=== PATIENT | female | born 1975 | race Caucasian/White ===

== ENCOUNTER → 2024-06-03 | Outpatient (CLI) | payer MEDICAID, SELFPAY ==
--- NOTE | 2024-06-03 12:20 | XR_ITS ---
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 Peak reference and age match control results have been displayed. Findings: Lumbar spine total bone mineralization is1.009 gm/cm2. This is 0.3 standard deviations below peak reference. This is 0.4 standard deviations above age-matched controls. Hip total bone mineralization is 0.980 gm/cm2 This is 0.3 standard deviations above peak reference. This is 0.8 standard deviations above age-matched controls Impression: There is normal mineralization based on lumbar spine measurements. There is normal mineralization based on hip measurements
== END | disposition home or self-care (01) ==
LOC: CDIM 10:24
PROVIDERS: Referring Provider Psychiatry & Neurology Neurology; Visit Provider Psychiatry & Neurology Neurology
DX: M81.0 Age-related osteoporosis without current pathological fracture (principal)
CPT/HCPCS: 77080

== ENCOUNTER → 2025-01-27 | Outpatient (CLI) | payer MEDICAID, SELFPAY ==
--- NOTE | 2025-01-27 13:15 | XR_ITS ---
Examination: Screening digital mammography, bilateral Computer aided detection 3-D breast Tomosynthesis, bilateral Date and time of exam: January 27, 2025 1308 hours Compared to mammograms dating to April 03, 2015 Indication: Screening Technique: Nonmagnified MLO, CC views of the breasts to been obtained, reconstructed from 3-D Tomosynthesis images. R2 computer aided detection program utilized for evaluation of suspicious masses and/or abnormal calcifications. 3-D Tomosynthesis images obtained. Findings: Scattered areas of fibroglandular density. Skin lesion upper left breast Benign calcifications. No interval suspicious masses Impression: BI-RADS category II: Benign Findings. Recommend 1 year follow-up mammogram.
== END | disposition home or self-care (01) ==
LOC: CDIM 12:56
PROVIDERS: Referring Provider Student in an Organized Health Care Education/Training Program; Visit Provider Student in an Organized Health Care Education/Training Program
DX: Z12.31 Encounter for screening mammogram for malignant neoplasm of breast (principal); R92.323 Mammographic fibroglandular density, bilateral breasts; R92.1 Mammographic calcification found on diagnostic imaging of breast
CPT/HCPCS: 77063; 77067

== ENCOUNTER 2025-03-07 10:19 | Emergency (ER) | payer MEDICAID, SELFPAY ==
[2025-03-07 10:38] VITALS: BMI 29.4
[2025-03-07 10:39] VITALS: BP 141/104; PULSE 106; RESP 18; TEMP 36.6; O2SAT 97
--- NOTE | 2025-03-07 10:47 | XR_ITS ---
Examination: Shoulder,left, 3 views Technique: Shoulder AP internal rotation, AP external rotation, Y view shoulder, 3 views Exam date and time :March 07, 2025 1040 hours INDICATIONS: Injury to the shoulder today, shoulder pain. FINDINGS: No shoulder fracture or dislocation No AC joint separation IMPRESSION: No shoulder fracture or dislocation
[2025-03-07] MEDS: KETOROLAC INJ 60 MG/2 ML VIAL 30 MG IM (11:10)
--- NOTE | 2025-03-07 11:24 | PD.EDUPEX ---
Upper Extremity Injury RME/HPI General Chief Complaint: Extremity Injury, Upper Stated Complaint: seizure on Monday, hurt left shoulder Time Seen by Provider: 03/07/25 10:23 Source: patient Arrival date/time: 03/07/25 10:19 49-year-old female with a history of seizures presents to the emergency room with a chief complaint of tenderness and pain to her left shoulder. Patient states she had a seizure Monday and since then she has been having difficulty moving her left shoulder. Mode of arrival: ambulatory Limitations: no limitations Related Data Home Medications ?Medication ?Instructions ?Recorded ?Confirmed divalproex 500 mg tablet,delayed 500 mg PO BID #0 tabs 01/22/16 11/02/18 release (Depakote) phenytoin sodium extended 100 mg 300 mg PO BID ##0 01/22/16 11/02/18 capsule Previous Rx's ?Medication ?Instructions ?Recorded ibuprofen 600 mg tablet 600 mg PO Q6H #30 tabs 11/02/18 Allergies Allergy/AdvReac Type Severity Reaction Status Date / Time No Known Allergies Allergy Verified 03/07/25 10:24 Review of Systems Review of Systems Systems Reviewed: All systems reviewed, normal except as documented Constitutional Constitutional: Reports system reviewed and no additional complaints, except as documented, Denies fatigue, Denies fever(s), Denies headache(s) and Denies weakness Eyes Eyes: Reports system reviewed and no additional complaints, except as documented, Denies blurry vision and Denies change in vision ENT Ears, Nose, Mouth, and Throat: Reports system reviewed and no additional complaints, except as documented, Denies otalgia, Denies headache(s), Denies nasal congestion, Denies throat swelling and Denies vertigo Cardiovascular Cardiovascular: Reports system reviewed and no additional complaints, except as documented, Denies chest pain, Denies dyspnea and Denies dyspnea on exertion Respiratory Respiratory: Reports system reviewed and no additional complaints, except as documented, Denies chest congestion, Denies cough, Denies dyspnea, Denies dyspnea on exertion and Denies wheezing Gastrointestinal Gastrointestinal: Reports system reviewed and no additional complaints, except as documented, Denies abdominal pain, Denies cramping, Denies nausea and Denies vomiting Genitourinary Genitourinary: Reports system reviewed and no additional complaints, except as documented Musculoskeletal Musculoskeletal: Reports system reviewed and no additional complaints, except as documented, Reports arthralgias, Denies back pain, Reports joint swelling and Reports limited range of motion Integumentary/Breasts Skin/Breast: Reports system reviewed and no additional complaints, except as documented and Denies wounds Neurologic Neurologic: Reports system reviewed and no additional complaints, except as documented, Denies confusion, Denies headache(s), Denies lack of coordination, Denies vertigo and Denies weakness Psychiatric Psychiatric: Reports system reviewed and no additional complaints, except as documented, Denies anxiety, Denies confusion, Denies depression, Denies paranoia, Denies suicidal ideation and Denies tactile hallucinations Endocrine Endocrine: Reports system reviewed and no additional complaints, except as documented and Denies fatigue Hematologic/Lymphatic Hematologic/Lymphatic: Reports system reviewed and no additional complaints, except as documented and Denies lymphadenopathy Allergic/Immunologic Allergic/Immunologic: Reports system reviewed and no additional complaints, except as documented, Denies throat swelling, Denies urticaria and Denies wheezing ED Exam General Limitations: Present no limitations General appearance: Present alert and in no apparent distress Head Head exam: Present atraumatic Eye Eye exam: Present normal appearance, PERRL and EOMI ENT ENT exam: Present normal exam, normal oropharynx and mucous membranes moist Neck Neck exam: Present normal inspection, full ROM and trachea midline Chest Chest inspection: Present normal inspection and symmetric chest wall rise Respiratory Respiratory exam: Present normal lung sounds bilaterally Cardiovascular Cardiovascular exam: Present regular rate, normal rhythm and normal heart sounds Abdominal Exam Abdominal exam: Present soft and normal bowel sounds Extremities Exam Extremities exam: Present normal inspection and full ROM Expanded Upper Extremity Exam Shoulder exam: Present tenderness, swelling and tenderness over AC joint; Absent full ROM Back Exam Back exam: Present normal inspection and full ROM Neurological Exam Neurological exam: Present alert, oriented X3 and CN II-XII intact Psychiatric Psychiatric exam: Present normal affect and normal mood Skin Skin exam: Present warm, dry, intact and normal color Course Quality Measures none Orders Category Date Time Status XR shoulder LT min 2V Stat Exams 03/07/25 10:47 Completed Ketorolac Inj [Toradol Inj] Med 03/07/25 10:49 Discontinued 30 mg IM X1 ONE Vital Signs Vital signs: Vital Signs Temperature 97.9 F 03/07/25 10:39 Pulse Rate 106 H 03/07/25 10:39 Respiratory Rate 18 03/07/25 10:39 Blood Pressure 141/104 H 03/07/25 10:39 Pulse Oximetry (%) 97 03/07/25 10:39 Oxygen Delivery Method Room Air 03/07/25 10:39 Extremity Injury MDM Narrative MDM Narrative:: 49-year-old female with a history of seizures presents to the emergency room with a chief complaint of tenderness and pain to her left shoulder. Patient states she had a seizure Monday and since then she has been having difficulty moving her left shoulder. Patient is hemodynamically stable and in no apparent distress Physical examination shows tenderness and pain to the patient's left shoulder. Patient is having difficulty raising her left shoulder above her head. The patient also has tenderness with point palpation. X-ray of the shoulder was completed and was negative for any acute fracture or dislocation. The patient was educated to follow-up with her primary care provider as an MRI of her shoulder may be indicated if her signs and symptoms continue to assess for any ligament damage Patient was discharged and educated to follow-up with primary care provider in the next 24 to 48 hours and return to the emergency room for any evidence of worsening signs or symptoms Patient data External records reviewed:: [facility] previous records Clinical information provided by:: patient Social determinants that could affect healthcare access:: none Patient has the following chronic illnesses:: No chronic illness How is presenting disease/condition affected by chronic disease/condition?: no chronic disease Evaluation data The following diagnostics were reviewed and interpreted by me:: lab results and radiology exam(s) Lab and/or radiology exams considered but not ordered:: Labs radiology exams considered and ordered Interpretation Summary: X-ray shoulder-INDINGS: No shoulder fracture or dislocation No AC joint separation IMPRESSION: No shoulder fracture or dislocation Medications / Prescriptions Medications or Prescriptions considered but not ordered:: Medication given Medication administrations:: Medication Administration History Discontinued Medications Ketorolac Tromethamine (Ketorolac Inj 60 Mg/2 Ml Vial) 30 mg IM X1 ONE Stop: 03/07/25 10:50 Last Admin: 03/07/25 11:10 Dose: 30 mg Documented By: Medication given Consultations Consultation(s) initiated? (list below): No Diagnosis Upper Extremity Injury Differential Diagnosis: dislocation of shoulder and other Most likely diagnosis given after review of the tests above:: Shoulder sprain Admission Indicated Admission indicated?: not indicated Admission Request Was there a request for admission?: No Disposition Plan Disposition Plan: Discharge Discharge Attestation Discharge Attestation: The patient and all family members were given an opportunity to ask questions and understood the discharge instructions. Discharge instructions specifically effects, indications for sooner follow up or return to the emergency department, and the expected course of current diagnosis. Patient condition: Stable Discharge Plan Plan Patient Disposition: HOME (Self Care) Discharge Disposition comment: Stable Prescriptions/Referrals Prescriptions/Med Rec: No Action phenytoin sodium extended 100 MG capsule 300 mg PO BID Qty: 0 divalproex [Depakote] 500 MG tablet,delayed release (DR/EC) 500 mg PO BID Qty: 0 ibuprofen 600 mg tablet 600 mg PO Q6H Qty: 30 0RF Referrals: Ruby Peraza FNP [Primary Care Provider] - In 1 week Problem List Clinical Impression: Shoulder sprain Patient/Caregiver Discharge Instructions Education Materials: ED Shoulder Sprain Additional Instructions: Please follow-up with your primary care provider in the next 24 to 48 hours. Your x-rays were negative for any acute fracture or dislocation Please keep your sling in place. If your signs and symptoms continue you will need a referral for an MRI to assess for any ligament damage or tears in your shoulder For any evidence of worsening signs or symptoms return to the emergency room immediately Print Language: Tuvaluan Stand Alone Forms: Nan Award Info., Work/School Release, Patient Portal Info Letter DAVID/SHAY Supervising Physician KANG Supervising Physician: Dr. Mann
== END 2025-03-07 12:39 | disposition home or self-care (01) ==
PROVIDERS: Emergency Provider Nurse Practitioner Family; PCP Student in an Organized Health Care Education/Training Program
DX: S43.402A Unspecified sprain of left shoulder joint, initial encounter (principal); X58.XXXA Exposure to other specified factors, initial encounter
CPT/HCPCS: 73030; 99283; J1885

== ENCOUNTER 2025-06-02 13:30 | Outpatient (RCR) | payer MEDICAID, SELFPAY ==
--- NOTE | 2025-05-19 13:40 | PTNOTE_ITS ---
PT OP Initial Eval Patient Information Outpatient Physical Therapy Treatment Date: 05/19/25 Visit Reasons: pain in left shoulder Medical Diagnosis: Left Shoulder Pain Treatment Dx #1: Left Shoulder Pain Treatment Dx #2: Left Shoulder Mobility Deficits Start of Care: 05/19/25 Date of Onset: 2 months ago Smoking Status Smoking Status: Never smoker Initial Assessment Subjective: Pt is a 49 y/o female reports of left shoulder pain after she fell x 2 ~ two months ago. Pt does not recall how she fell since she was having a seizure in both incident. Pt's shoulder pain (1010) constantly. Pt has limitation with lifting, chores, self care, cooking, cleaning, gripping, and performing recreational activities. Objective: Left Shoulder PROM Flexion: 150 deg Abduction: 120 deg External Rotation: 20 deg Internal Rotation: unable due to pain Left Shoulder AROM Flexion: 110 deg Abduction: 90 deg ER and IR: unable Left Shoulder MMTs: grossly 3-/5 Left Scapula MMTs: grossly 3-/5 Special Test (+) drop arm test Palpation: TTP supraspinatus tendon Assessment: Pt demonstrate left shoulder pain with mobility deficits consistent with possible rotator cuff involvement leading to difficulty with ADLs. Pt will attempt physical therapy if pain persist Pt will be refer back to provider for further consultation. 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 Goals 1) Increase left shoulder PROM WFL in 6 wks to prevent frozen shoulder 2) Increase left shoulder AROM WFL in 6 wks to be able to perform overhead motions 3) Increase left shoulder MMTs grossly to 3+/5 in 6 wks to be able to perform lifting activities 4) Increase left scapula MMTs grossly to 3+/5 in 6 wks to be able to perform recreational activities 5) Indep with HEP Treatment Plan 1) Manual Therapy 2) Therapeutic Activities 3) Therapeutic Exercises 4) Modalities (ice, heat) Frequency and Duration: 2 x wk for 6 wks Certification Dates: 05/19/25 to 08/17/25 Procedure Charges OP PT Eval Mod Complex 30 minutes: Yes
--- NOTE | 2025-05-22 15:06 | PT.ODAYNRPT ---
PT Outpatient Daily Note OP Daily Note Outpatient Physical Therapy Treatment Date: 05/22/25 Visit Reasons: pain in left shoulder Subjective: Pt c/o high shoulder pain. Objective: Please see flow sheet for ther ex list. Assessment: Pt demonstrates poor activity tolerance due to pain response. Plan: Continue with poC. Assess response to treatment. Length of Time (minutes) of Treatment: 30 Minutes Procedure Charges Therapeutic Exercise 30 minutes: Yes
--- NOTE | 2025-05-28 15:21 | PT.ODAYNRPT ---
PT Outpatient Daily Note OP Daily Note Outpatient Physical Therapy Treatment Date: 05/28/25 Visit Reasons: pain in left shoulder Subjective: Pt reports shoulder continues to be painful but notices some improvement in ROM. Objective: Continue with poC. Assessment: Pt demonstrates upper trap recruitment during AAROM interventions but can recognize compensation and self correct. Plan: Continue with POC. Length of Time (minutes) of Treatment: 30 Minutes Procedure Charges Therapeutic Exercise 30 minutes: Yes
--- NOTE | 2025-06-02 13:39 | PT.ODAYNRPT ---
PT Outpatient Daily Note OP Daily Note Outpatient Physical Therapy Treatment Date: 06/02/25 Visit Reasons: pain in left shoulder Subjective: Pt's shoulder feels much better and can perform arm movement past shoulder height. Pt was able to put on her sweater and tie hair into pony tail Objective: Please see flow chart for list of ther ex performed Assessment: patient demonstrate left shoulder ROM past shoulder height with less pain reported allowing her to perform self care activities with less limitation. Plan: Continue with PT Length of Time (minutes) of Treatment: 30 Minutes Procedure Charges Therapeutic Exercise 30 minutes: Yes
== END 2025-06-11 23:59 | disposition home or self-care (01) ==
LOC: CPTX 13:30
PROVIDERS: PCP Psychiatry & Neurology Neurology; Referring Provider Psychiatry & Neurology Neurology; Visit Provider Psychiatry & Neurology Neurology
DX: M25.512 Pain in left shoulder (principal)
CPT/HCPCS: 97110; 97162